=== PATIENT | male | born 1995 | race Caucasian/White ===

== ENCOUNTER 2016-09-04 18:18 | Emergency (ER) | payer OTHER ==
[~2016-09-04] VITALS: Ht 182.9 cm; Wt 95.0 kg
[2016-09-04] MEDS ORDERED: KETOROLAC 30 MG/1 ML IV ONE (19:00)
[2016-09-04] MEDS ORDERED: LIDOCAINE GEL 2%, 5ML TP ONE (19:00)
[2016-09-04] MEDS ORDERED: LIDOCAINE 1%, 20ML INFIL ONE (19:00)
[2016-09-04] MEDS ORDERED: HYDROcodone/APAP 5/325 TABLET PO ONE (19:00)
[2016-09-04] MEDS ORDERED: KETOROLAC 30 MG/1 ML ONE (19:04)
[2016-09-04] MEDS ORDERED: LIDOCAINE GEL 2%, 5ML ONE ×2 (19:04→19:12)
[2016-09-04] MEDS ORDERED: HYDROcodone/APAP 5/325 TABLET ONE (19:04)
[2016-09-04] MEDS ORDERED: LIDOCAINE 1%, 20ML ONE (19:05)
[2016-09-04 19:37] VITALS: BP 138/72
[2016-09-04] MEDS ORDERED: BACITRACIN ZINC OINT 500U/GM, 0.9 GM ONE ×3 (20:03→20:23)
== END 2016-09-04 21:51 | disposition home or self-care (01) ==
LOC: ED 21:15
DX: S51.012A Laceration without foreign body of left elbow, initial encounter (principal); S30.810A Abrasion of lower back and pelvis, initial encounter; S90.512A Abrasion, left ankle, initial encounter; S90.511A Abrasion, right ankle, initial encounter; S80.812A Abrasion, left lower leg, initial encounter; S80.811A Abrasion, right lower leg, initial encounter; V27.4XXA Motorcycle driver injured in collision with fixed or stationary object in traffic accident, initial encounter; Y93.89 Activity, other specified; Y92.89 Other specified places as the place of occurrence of the external cause; Y99.8 Other external cause status
CPT/HCPCS: 12002; 73080; 96374; 99284; J1885; J3490

== ENCOUNTER 2016-09-09 11:47 | Emergency (ER) | payer OTHER ==
[~2016-09-09] VITALS: Ht 182.9 cm; Wt 93.1 kg
[2016-09-09 11:49] VITALS: BP 128/85
== END 2016-09-09 12:56 | disposition home or self-care (01) ==
LOC: ED 12:33
DX: T78.40XA Allergy, unspecified, initial encounter (principal); X58.XXXA Exposure to other specified factors, initial encounter
CPT/HCPCS: 99283